=== PATIENT | female | born 1985 | race Asian ===

== ENCOUNTER 2023-02-24 10:20 | Outpatient (CLI) | payer BC | END 2023-02-24 10:21 | disposition home or self-care (01) | LOC: CSHULT 10:20 | PROVIDERS: ATTEND Internal Medicine | DX: D25.9 Leiomyoma of uterus, unspecified (principal); N83.202 Unspecified ovarian cyst, left side | CPT/HCPCS: 76856 ==

== ENCOUNTER 2023-08-02 08:26 | Outpatient (CLI) | payer BC ==
[2023-08-02] MEDS ORDERED: Iopamidol 300 61% 100 ML VIAL FS ONE (10:49)
== END 2023-08-02 08:27 | disposition home or self-care (01) ==
LOC: CSHCT 08:26
PROVIDERS: ATTEND Surgery
DX: K43.2 Incisional hernia without obstruction or gangrene (principal); R19.09 Other intra-abdominal and pelvic swelling, mass and lump; D25.9 Leiomyoma of uterus, unspecified; K57.30 Diverticulosis of large intestine without perforation or abscess without bleeding; K43.9 Ventral hernia without obstruction or gangrene
CPT/HCPCS: 74177

== ENCOUNTER 2024-10-15 08:58 | Outpatient (CLI) | payer BC | END 2024-10-15 08:59 | disposition home or self-care (01) | LOC: CSHCT 08:58 | PROVIDERS: ATTEND Surgery | DX: K43.2 Incisional hernia without obstruction or gangrene (principal); R19.09 Other intra-abdominal and pelvic swelling, mass and lump | CPT/HCPCS: 74176 ==

== ENCOUNTER 2024-12-25 08:24 | Outpatient (CLI) | payer BC | END 2024-12-25 08:25 | disposition home or self-care (01) | LOC: CSHMAMMO 08:24 | PROVIDERS: ATTEND Internal Medicine | DX: N63.11 Unspecified lump in the right breast, upper outer quadrant (principal) | CPT/HCPCS: 77066; G0279 ==

== ENCOUNTER 2025-06-07 08:46 | Day surgery (SDC) | payer BC ==
[2025-06-03 09:20] VITALS: BMI 38.2
[2025-06-07] MEDS ORDERED: CEFAZOLIN 2 GM VIAL ONE (08:48)
[2025-06-07] MEDS ORDERED: Bupivacaine/Epinephrine 0.25% 30 ML VIAL ONE (08:48)
[2025-06-07] MEDS ORDERED: PROPOFOL 20 ML ONE ×2 (09:05→10:11)
[2025-06-07] MEDS ORDERED: Lidocaine 1% PF 5 ML VIAL ONE (09:06)
[2025-06-07] MEDS ORDERED: Ondansetron PF 4 MG/2 ML Vial ONE (10:34)
[2025-06-07] MEDS ORDERED: HYDROcodone/Acetaminophen 5/325 mg Tablet ONE (11:49)
== END 2025-06-07 12:19 | disposition home or self-care (01) ==
LOC: CSHSDC 08:46
PROVIDERS: ATTEND Surgery
PROC: 0HBT0ZZ Excision of Right Breast, Open Approach (ICD-10-PCS; principal; 2025-06-07)
DX: D24.1 Benign neoplasm of right breast (principal); I10 Essential (primary) hypertension; Z90.710 Acquired absence of both cervix and uterus; Z98.890 Other specified postprocedural states; Z79.899 Other long term (current) drug therapy
CPT/HCPCS: 88307; J1100; J2405; J2704; J3010